=== PATIENT | female | born 1990 | race Asian ===

== ENCOUNTER 2018-08-29 16:58 | Emergency (ER) | payer OTHER ==
[~2018-08-29] VITALS: Ht 170.2 cm; Wt 75.3 kg
[2018-08-29 17:05] VITALS: Ht 170.2 cm; Wt 75.3 kg
[2018-08-29 21:34] VITALS: BP 129/77
== END 2018-08-29 21:34 | disposition home or self-care (01) ==
LOC: ED 16:58
DX: M54.12 Radiculopathy, cervical region (principal); R51 Headache